=== PATIENT | male | born 1930 | race Caucasian/White ===

== ENCOUNTER 2018-05-14 11:21 | Inpatient (IN) | payer MEDICAID, OTHER ==
[~2018-05-14] VITALS: Ht 152.4 cm; Wt 49.9 kg
--- NOTE | 2018-05-14 12:06 | NUR ---
PROVIDED ICE CHIPS AND TOLERATING WELL
[2018-05-14] MEDS ORDERED: DULO60CA55 PO (12:07)
[2018-05-14] MEDS ORDERED: TAMS-11 PO (12:07)
[2018-05-14 12:11] LABS: BASOPHILS # (AUTO) 0.02 x10^3/uL (0-0.1); BASOPHILS % (AUTO) 0 % (0-1); EOSINOPHILS # (AUTO) 0.05 x10^3/uL (0-0.4); EOSINOPHILS % (AUTO) 0 % (1-7); LYMPHOCYTES % (AUTO) 6 % (22-44); MD NO; MEAN CORPUSCULAR HEMOGLOBIN 29.2 pg (27.5-34.5); MEAN CORPUSCULAR HGB CONC 32.4 g/dL (33.2-36.2); MEAN CORPUSCULAR VOLUME 90.1 fL (81-97); MEAN PLATELET VOLUME 6.8 fL (7.4-10.4); MONOCYTES # (AUTO) 0.94 x10^3/uL (0.2-0.8); MONOCYTES % (AUTO) 7 % (2-9); NEUTROPHILS % (AUTO) 86 % (42-75); PLATELET COUNT 462 x10^3/uL (130-400); RED BLOOD COUNT 2.63 x10^6/uL (4.38-5.82); RED CELL DISTRIBUTION WIDTH 18.9 % (9.4-14.8)
[2018-05-14] MEDS ORDERED: [UNRECOGNIZED DRUG - CODE] TP (12:19)
[2018-05-14] MEDS ORDERED: POLY17PO5 PO (12:19)
[2018-05-14] MEDS ORDERED: ACET325T26 PO (12:19)
[2018-05-14] MEDS ORDERED: TIOTROPIUM (12:19)
[2018-05-14] MEDS ORDERED: SENN8.6T64 PO (12:19)
[2018-05-14] MEDS ORDERED: FERR325T18 PO (12:19)
[2018-05-14] MEDS ORDERED: TIOT18CA INH (12:19)
[2018-05-14] MEDS ORDERED: CHOL100011 PO (12:19)
[2018-05-14] MEDS ORDERED: ASCO500T7 PO (12:19)
[2018-05-14] MEDS ORDERED: FINA5TAB4 PO (12:19)
[2018-05-14] MEDS ORDERED: LISI5TAB7 PO (12:19)
[2018-05-14] MEDS ORDERED: MELA1TAB22 PO (12:19)
[2018-05-14] MEDS ORDERED: LACT-23 PO (12:19)
[2018-05-14] MEDS ORDERED: OMEP-110 PO (12:19)
[2018-05-14 12:24] LABS: ALANINE AMINOTRANSFERASE 10 U/L (12-78); ALBUMIN 2.1 g/dL (3.4-5.0); ANION GAP 3 mmol/L (5-15); CALCIUM 7.8 mg/dL (8.5-10.1); CHLORIDE 105 mmol/L (98-107); CREATININE 0.51 mg/dL (0.7-1.3)
[2018-05-14 12:27] LABS: ALKALINE PHOSPHATASE 74 U/L (45-117); BILIRUBIN,TOTAL 0.2 mg/dL (0.2-1.0); TOTAL PROTEIN 5.2 g/dL (6.4-8.2)
--- NOTE | 2018-05-14 12:51 | NUR ---
PILLOW PLACED UNDER RIGHT HIP TO TAKE PRESSURE OFF OF COCCYX
[2018-05-14 13:21] LABS: CULTURE INDICATED? YES; MICROSCOPIC INDICATED
[2018-05-14] MEDS ORDERED: D5%-0.45% NACL 1,000 ML IV SCH (13:21)
[2018-05-14 13:24] LABS: INTERNATIONAL NORMALIZED RATIO 0.95 (0.93-1.1)
--- NOTE | 2018-05-14 13:25 | NUR ---
HEMMOCULT OBTAINED BY . SMALL AMOUNT OF STOOL IN DEPEND. PT CLEANED BY STAFF WITH DRY DEPEND PLACED.
[2018-05-14] MEDS ORDERED: ONDANSETRON 2MG/ML, 2ML IVPush PRN (13:30)
[2018-05-14] MEDS ORDERED: ONDANSETRON ODT 4 MG PO PRN (13:30)
[2018-05-14] MEDS ORDERED: LABETALOL 5 MG/ML SYRINGE IVPush PRN (13:30)
[2018-05-14] MEDS ORDERED: PLEASE ENTER ALLERGIES MC SCH (13:30)
[2018-05-14] MEDS ORDERED: POLYETHYLENE GLYCOL 17 GM PACKET PO PRN (13:30)
[2018-05-14] MEDS ORDERED: PLEASE ENTER HEIGHT AND WEIGHT MC SCH (13:30)
[2018-05-14] MEDS ORDERED: DEXTROSE 4 GM TAB.CHEW PO PRN (14:00)
[2018-05-14] MEDS ORDERED: DEXTROSE 50%, 50ML SYRINGE IVPush PRN (14:00)
[2018-05-14] MEDS ORDERED: GLUCAGON 1 MG IM PRN (14:00)
--- NOTE | 2018-05-14 14:00 | NUR ---
HOSPITALIST AT BEDSIDE.
[2018-05-14 14:37] LABS: CHOL/HDL RATIO 2.6; LDL/HDL RATIO 0.9 (0.5-3.0)
[2018-05-14] MEDS: PANTOPRAZOLE 80 MG in SODIUM CHLORIDE 0.9% 100 ML IV SCH ×2 (14:53→15:06)
[2018-05-14] MEDS ORDERED: PANTOPRAZOLE 80 MG in SODIUM CHLORIDE 0.9% 50 ML IVPB ONE (15:30)
--- NOTE | 2018-05-14 15:45 | NUR ---
INFORMED DR HOPKINS TO DO SCOPE 3-14 AT 12:30
[2018-05-14] MEDS: INSULIN LISPRO 100 UNITS/ML, PEN SQ-INSULIN SCH ×2 (16:00→21:00)
--- NOTE | 2018-05-14 16:07 | NUR ---
SHANICE RN: REPORT GIVEN TO PAWEL ROCHA, PT READY FOR TRANSFER TO FLOOR
[2018-05-14 17:21] VITALS: BP 96/62
[2018-05-14] MEDS: AMPICILLIN/SULBACTAM 3 GM in SODIUM CHLORIDE 0.9% 100 ML IV SCH ×2 (17:41→23:54)
[2018-05-14] MEDS: DOXYCYCLINE 100 MG in DEXTROSE 5% 250 ML IV SCH (18:39)
[2018-05-14 18:55] VITALS: BP 104/65
[2018-05-14] MEDS: LACTOSE FREE FOOD PO SCH (21:00)
[2018-05-14] MEDS: SODIUM CHLORIDE FLUSH 10ML SYR IVF SCH (21:00)
[2018-05-14] MEDS: TEMPLATE NON-FORMULARY MED. (Melatonin/Pyridoxine Hcl (B6)** (Melatonin 3 Mg Tablet**) 1 T PO SCH (21:00)
[2018-05-14] MEDS: ACETAMINOPHEN 325 MG TABLET PO SCH (21:11)
[2018-05-15] VITALS (9 sets, daily range): BP systolic 96–122; BP diastolic 57–68
[2018-05-15] MEDS: AMPICILLIN/SULBACTAM 3 GM in SODIUM CHLORIDE 0.9% 100 ML IV SCH ×4 (05:35→23:41)
[2018-05-15 06:26] LABS: BASOPHILS # (AUTO) 0.02 x10^3/uL (0-0.1); BASOPHILS % (AUTO) 0 % (0-1); EOSINOPHILS # (AUTO) 0.23 x10^3/uL (0-0.4); EOSINOPHILS % (AUTO) 2 % (1-7); LYMPHOCYTES # (AUTO) 0.88 x10^3/uL (1-3.4); LYMPHOCYTES % (AUTO) 9 % (22-44); MD NO; MEAN CORPUSCULAR HEMOGLOBIN 28.9 pg (27.5-34.5); MEAN CORPUSCULAR HGB CONC 32.3 g/dL (33.2-36.2); MEAN CORPUSCULAR VOLUME 89.4 fL (81-97); MONOCYTES # (AUTO) 0.87 x10^3/uL (0.2-0.8); MONOCYTES % (AUTO) 9 % (2-9); NEUTROPHILS # (AUTO) 7.83 x10^3/uL (1.8-6.8); NEUTROPHILS % (AUTO) 80 % (42-75); PLATELET COUNT 400 x10^3/uL (130-400); RED BLOOD COUNT 2.72 x10^6/uL (4.38-5.82); RED CELL DISTRIBUTION WIDTH 18.2 % (9.4-14.8)
[2018-05-15 06:29] LABS: ALBUMIN 1.9 g/dL (3.4-5.0); ANION GAP 7 mmol/L (5-15); CALCIUM 7.3 mg/dL (8.5-10.1); CHLORIDE 105 mmol/L (98-107)
[2018-05-15] MEDS: DOXYCYCLINE 100 MG in DEXTROSE 5% 250 ML IV SCH ×2 (06:30→18:10)
[2018-05-15 06:41] LABS: ALANINE AMINOTRANSFERASE 10 U/L (12-78); ALKALINE PHOSPHATASE 71 U/L (45-117); CREATININE 0.49 mg/dL (0.7-1.3); TOTAL PROTEIN 4.6 g/dL (6.4-8.2)
[2018-05-15] MEDS: INSULIN LISPRO 100 UNITS/ML, PEN SQ-INSULIN SCH ×4 (07:00→21:00)
[2018-05-15] MEDS: TIOTROPIUM BROMIDE INH SCH (09:00)
[2018-05-15] MEDS: SENNOSIDES 8.6 MG TABLET PO SCH (09:00)
[2018-05-15] MEDS: POLYETHYLENE GLYCOL 17 GM PACKET PO SCH (09:00)
[2018-05-15] MEDS ORDERED: PANTOPRAZOLE 40 MG IV IVPush SCH (09:00)
[2018-05-15] MEDS: LACTOSE FREE FOOD PO SCH ×2 (09:00→21:00)
[2018-05-15] MEDS ORDERED: FERROUS SULFATE 325 MG TABLET PO SCH (09:00)
[2018-05-15] MEDS: SODIUM CHLORIDE FLUSH 10ML SYR IVF SCH ×2 (09:26→21:00)
[2018-05-15] MEDS: ACETAMINOPHEN 325 MG TABLET PO SCH ×2 (09:27→21:11)
[2018-05-15] MEDS: TAMSULOSIN 0.4 MG CAP.ER.24H PO SCH (09:27)
[2018-05-15] MEDS: FINASTERIDE 5 MG TABLET PO SCH (09:27)
[2018-05-15] MEDS: ASCORBIC ACID 500 MG TABLET PO SCH (09:27)
[2018-05-15] MEDS: CHOLECALCIFEROL 1,000 UNIT TABLET PO SCH (09:27)
[2018-05-15] MEDS: DULOXETINE 30 MG CAPSULE.DR PO SCH (09:28)
[2018-05-15] MEDS: SENNA/DOCUSATE TABLET PO SCH (09:28)
[2018-05-15] MEDS: PANTOPRAZOLE 80 MG in SODIUM CHLORIDE 0.9% 100 ML IV SCH ×2 (11:11→22:12)
[2018-05-15] MEDS: TEMPLATE NON-FORMULARY MED. (Melatonin/Pyridoxine Hcl (B6)** (Melatonin 3 Mg Tablet**) 1 T PO SCH (21:00)
[2018-05-16 01:29] VITALS: BP 103/58
[2018-05-16 02:28] VITALS: BP 103/59
[2018-05-16] MEDS: AMPICILLIN/SULBACTAM 3 GM in SODIUM CHLORIDE 0.9% 100 ML IV SCH ×2 (05:33→14:38)
[2018-05-16] MEDS: DOXYCYCLINE 100 MG in DEXTROSE 5% 250 ML IV SCH ×2 (06:14→23:13)
[2018-05-16 06:33] LABS: BASOPHILS # (AUTO) 0.03 x10^3/uL (0-0.1); BASOPHILS % (AUTO) 0 % (0-1); EOSINOPHILS # (AUTO) 0.25 x10^3/uL (0-0.4); EOSINOPHILS % (AUTO) 3 % (1-7); LYMPHOCYTES # (AUTO) 1.02 x10^3/uL (1-3.4); LYMPHOCYTES % (AUTO) 11 % (22-44); MD NO; MEAN CORPUSCULAR HEMOGLOBIN 29.4 pg (27.5-34.5); MEAN CORPUSCULAR HGB CONC 32.8 g/dL (33.2-36.2); MEAN CORPUSCULAR VOLUME 89.8 fL (81-97); MEAN PLATELET VOLUME 6.9 fL (7.4-10.4); MONOCYTES # (AUTO) 0.94 x10^3/uL (0.2-0.8); MONOCYTES % (AUTO) 10 % (2-9); NEUTROPHILS # (AUTO) 6.95 x10^3/uL (1.8-6.8); NEUTROPHILS % (AUTO) 76 % (42-75); PLATELET COUNT 387 x10^3/uL (130-400); RED BLOOD COUNT 2.63 x10^6/uL (4.38-5.82); RED CELL DISTRIBUTION WIDTH 18.1 % (9.4-14.8)
[2018-05-16 06:46] LABS: ALBUMIN 1.9 g/dL (3.4-5.0); ANION GAP 6 mmol/L (5-15); CALCIUM 7.2 mg/dL (8.5-10.1); CHLORIDE 105 mmol/L (98-107)
[2018-05-16 06:48] LABS: CREATININE 0.53 mg/dL (0.7-1.3)
[2018-05-16] MEDS: INSULIN LISPRO 100 UNITS/ML, PEN SQ-INSULIN SCH ×2 (07:00→11:00)
[2018-05-16] MEDS: TIOTROPIUM BROMIDE INH SCH (07:53)
[2018-05-16] MEDS: IRON SUCROSE COMPLEX 100MG/5ML IV SCH (07:53)
[2018-05-16] MEDS: SODIUM CHLORIDE FLUSH 10ML SYR IVF SCH ×2 (07:54→21:00)
[2018-05-16] MEDS: LACTOSE FREE FOOD PO SCH ×2 (07:54→19:53)
[2018-05-16] MEDS: DULOXETINE 30 MG CAPSULE.DR PO SCH (07:54)
[2018-05-16] MEDS: SENNOSIDES 8.6 MG TABLET PO SCH (07:55)
[2018-05-16] MEDS: ACETAMINOPHEN 325 MG TABLET PO SCH ×2 (07:55→19:53)
[2018-05-16] MEDS: TAMSULOSIN 0.4 MG CAP.ER.24H PO SCH (07:55)
[2018-05-16] MEDS: SENNA/DOCUSATE TABLET PO SCH (07:55)
[2018-05-16] MEDS: FINASTERIDE 5 MG TABLET PO SCH (07:55)
[2018-05-16] MEDS: POLYETHYLENE GLYCOL 17 GM PACKET PO SCH (07:55)
[2018-05-16] MEDS: CHOLECALCIFEROL 1,000 UNIT TABLET PO SCH (07:56)
[2018-05-16] MEDS: ASCORBIC ACID 500 MG TABLET PO SCH (07:56)
[2018-05-16 08:33] VITALS: BP 109/64
[2018-05-16] MEDS: PANTOPRAZOLE 80 MG in SODIUM CHLORIDE 0.9% 100 ML IV SCH (08:37)
[2018-05-16] MEDS ORDERED: EPINEPHRINE SYRINGE 0.1 MG/ML, 10ML ONE (13:29)
[2018-05-16] MEDS ORDERED: FENTANYL PF 100 MCG/2ML IV PRN (13:30)
[2018-05-16] MEDS ORDERED: ONDANSETRON 2MG/ML, 2ML IVPush PRN (13:30)
[2018-05-16] MEDS ORDERED: LABETALOL 5MG/ML, 20ML IV PRN (13:30)
[2018-05-16] MEDS ORDERED: OXYcodone 5 MG/5 ML ORAL.SOL UDC PO PRN (13:30)
[2018-05-16] MEDS ORDERED: MEPERIDINE/PF 25MG/0.5ML IVPush PRN (13:30)
[2018-05-16] MEDS ORDERED: MIDAZOLAM 1 MG/ML, 2ML IV PRN (13:30)
[2018-05-16] MEDS ORDERED: HYDROmorphone 1 MG/ML, 1ML IV PRN (13:30)
[2018-05-16] MEDS ORDERED: FENTANYL PF 100 MCG/2ML ONE (13:33)
[2018-05-16 14:17] VITALS: BP 112/67
[2018-05-16] MEDS ORDERED: PHENYLEPHRINE 10 MG/ML ONE (15:27)
[2018-05-16] MEDS ORDERED: PROPOFOL 10 MG/ML, 20ML ONE (15:27)
[2018-05-16] MEDS ORDERED: SUCRALFATE 1 GM/10 ML UDC PO SCH (17:00)
[2018-05-16] MEDS: TEMPLATE NON-FORMULARY MED. (Melatonin/Pyridoxine Hcl (B6)** (Melatonin 3 Mg Tablet**) 1 T PO SCH (19:53)
[2018-05-16 20:01] VITALS: BP 105/56
[2018-05-17] MEDS: AMPICILLIN/SULBACTAM 3 GM in SODIUM CHLORIDE 0.9% 100 ML IV SCH ×3 (00:30→06:33)
[2018-05-17 01:20] VITALS: BP 98/59
[2018-05-17 05:23] LABS: BASOPHILS # (AUTO) 0.04 x10^3/uL (0-0.1); BASOPHILS % (AUTO) 1 % (0-1); EOSINOPHILS # (AUTO) 0.34 x10^3/uL (0-0.4); EOSINOPHILS % (AUTO) 4 % (1-7); LYMPHOCYTES # (AUTO) 0.93 x10^3/uL (1-3.4); LYMPHOCYTES % (AUTO) 11 % (22-44); MD NO; MEAN CORPUSCULAR VOLUME 90.8 fL (81-97); MEAN PLATELET VOLUME 7.2 fL (7.4-10.4); MONOCYTES # (AUTO) 0.89 x10^3/uL (0.2-0.8); MONOCYTES % (AUTO) 10 % (2-9); NEUTROPHILS # (AUTO) 6.41 x10^3/uL (1.8-6.8); NEUTROPHILS % (AUTO) 74 % (42-75); PLATELET COUNT 411 x10^3/uL (130-400); RED BLOOD COUNT 2.75 x10^6/uL (4.38-5.82)
[2018-05-17 05:31] LABS: ALBUMIN 1.7 g/dL (3.4-5.0); ANION GAP 4 mmol/L (5-15); CALCIUM 7.4 mg/dL (8.5-10.1); CHLORIDE 109 mmol/L (98-107); CREATININE 0.36 mg/dL (0.7-1.3)
[2018-05-17] MEDS ORDERED: PANTOPROZOLE 40MG TABLET PO SCH (07:00)
[2018-05-17] MEDS ORDERED: POTASSIUM CHLORIDE 20 MEQ TAB.ER.PRT PO ONE (07:00)
[2018-05-17 07:45] VITALS: BP 118/64
[2018-05-17] MEDS: SUCRALFATE 1 GM/10 ML UDC PO SCH ×4 (07:51→21:24)
[2018-05-17] MEDS: SODIUM CHLORIDE FLUSH 10ML SYR IVF SCH ×2 (08:52→21:24)
[2018-05-17] MEDS: IRON SUCROSE COMPLEX 100MG/5ML IV SCH (08:52)
[2018-05-17] MEDS: TIOTROPIUM BROMIDE INH SCH (08:52)
[2018-05-17] MEDS: OMEPRAZOLE 20 MG CAPSULE.DR PO SCH (08:53)
[2018-05-17] MEDS: FINASTERIDE 5 MG TABLET PO SCH (08:53)
[2018-05-17] MEDS: DULOXETINE 30 MG CAPSULE.DR PO SCH (08:53)
[2018-05-17] MEDS: TAMSULOSIN 0.4 MG CAP.ER.24H PO SCH (08:53)
[2018-05-17] MEDS: SENNA/DOCUSATE TABLET PO SCH (08:54)
[2018-05-17] MEDS: SENNOSIDES 8.6 MG TABLET PO SCH (08:54)
[2018-05-17] MEDS: CHOLECALCIFEROL 1,000 UNIT TABLET PO SCH (08:54)
[2018-05-17] MEDS: POLYETHYLENE GLYCOL 17 GM PACKET PO SCH (08:55)
[2018-05-17] MEDS: LACTOSE FREE FOOD PO SCH ×2 (08:57→21:00)
[2018-05-17] MEDS: ACETAMINOPHEN 325 MG TABLET PO SCH ×2 (08:57→21:24)
[2018-05-17] MEDS ORDERED: POTASSIUM CHLORIDE 10% 40 MEQ/30 ML UDC PO ONE (11:00)
[2018-05-17] MEDS: AMOXICILLIN/CLAV 875-125MG TABLET PO SCH ×2 (12:10→21:24)
[2018-05-17 14:00] VITALS: BP 100/63
[2018-05-17] MEDS ORDERED: SUCR1TAB33 PO (16:00)
[2018-05-17] MEDS ORDERED: PANT40GR PO (16:01)
[2018-05-17 19:37] VITALS: BP 93/53
[2018-05-17] MEDS: TEMPLATE NON-FORMULARY MED. (Melatonin/Pyridoxine Hcl (B6)** (Melatonin 3 Mg Tablet**) 1 T PO SCH (21:00)
[2018-05-18 01:30] VITALS: BP 99/63
[2018-05-18 05:18] LABS: ALBUMIN 1.8 g/dL (3.4-5.0); ANION GAP 4 mmol/L (5-15); CALCIUM 7.5 mg/dL (8.5-10.1); CHLORIDE 109 mmol/L (98-107); CREATININE 0.34 mg/dL (0.7-1.3)
[2018-05-18 05:25] LABS: BASOPHILS # (AUTO) 0.03 x10^3/uL (0-0.1); BASOPHILS % (AUTO) 0 % (0-1); EOSINOPHILS # (AUTO) 0.65 x10^3/uL (0-0.4); EOSINOPHILS % (AUTO) 7 % (1-7); LYMPHOCYTES # (AUTO) 1.15 x10^3/uL (1-3.4); LYMPHOCYTES % (AUTO) 12 % (22-44); MD NO; MEAN CORPUSCULAR HEMOGLOBIN 29.7 pg (27.5-34.5); MEAN CORPUSCULAR HGB CONC 32.6 g/dL (33.2-36.2); MEAN CORPUSCULAR VOLUME 91.1 fL (81-97); MEAN PLATELET VOLUME 7.1 fL (7.4-10.4); MONOCYTES # (AUTO) 0.88 x10^3/uL (0.2-0.8); MONOCYTES % (AUTO) 9 % (2-9); NEUTROPHILS # (AUTO) 6.81 x10^3/uL (1.8-6.8); NEUTROPHILS % (AUTO) 72 % (42-75); PLATELET COUNT 417 x10^3/uL (130-400); RED BLOOD COUNT 2.95 x10^6/uL (4.38-5.82); RED CELL DISTRIBUTION WIDTH 19.1 % (9.4-14.8)
[2018-05-18 07:38] VITALS: BP 123/73
[2018-05-18] MEDS: SUCRALFATE 1 GM/10 ML UDC PO SCH ×2 (08:19→11:50)
[2018-05-18] MEDS ORDERED: IRON SUCROSE COMPLEX 100MG/5ML IV ONE (09:00)
[2018-05-18] MEDS: LACTOSE FREE FOOD PO SCH (09:22)
[2018-05-18] MEDS: IRON SUCROSE COMPLEX 100MG/5ML IV SCH (09:22)
[2018-05-18] MEDS: TIOTROPIUM BROMIDE INH SCH (09:22)
[2018-05-18] MEDS: SODIUM CHLORIDE FLUSH 10ML SYR IVF SCH (09:22)
[2018-05-18] MEDS: AMOXICILLIN/CLAV 875-125MG TABLET PO SCH (09:22)
[2018-05-18] MEDS: DULOXETINE 30 MG CAPSULE.DR PO SCH (09:23)
[2018-05-18] MEDS: FINASTERIDE 5 MG TABLET PO SCH (09:23)
[2018-05-18] MEDS: TAMSULOSIN 0.4 MG CAP.ER.24H PO SCH (09:23)
[2018-05-18] MEDS: SENNOSIDES 8.6 MG TABLET PO SCH (09:24)
[2018-05-18] MEDS: ACETAMINOPHEN 325 MG TABLET PO SCH (09:24)
[2018-05-18] MEDS: OMEPRAZOLE 20 MG CAPSULE.DR PO SCH (09:24)
[2018-05-18] MEDS: SENNA/DOCUSATE TABLET PO SCH (09:24)
[2018-05-18] MEDS: POLYETHYLENE GLYCOL 17 GM PACKET PO SCH (09:24)
[2018-05-18] MEDS: CHOLECALCIFEROL 1,000 UNIT TABLET PO SCH (09:25)
[2018-05-18 13:46] VITALS: BP 107/65
[2018-05-18] MEDS ORDERED: DOXY100T PO (16:59)
[2018-05-18] MEDS ORDERED: AMOX1TAB64 PO (16:59)
== END 2018-05-18 17:10 | disposition home or self-care (01) | DRG 377 ==
LOC: ED 13:08 → EDIP 13:09 → ED 13:21 → 3NE 15:47
PROVIDERS: ADMIT Internal Medicine; ATTEND Internal Medicine
PROC: 30233N1 Transfusion of Nonautologous Red Blood Cells into Peripheral Vein, Percutaneous Approach (ICD-10-PCS; 2018-05-15)
PROC: 0W3P8ZZ Control Bleeding in Gastrointestinal Tract, Via Natural or Artificial Opening Endoscopic (ICD-10-PCS; principal; 2018-05-16 12:30)
DX: K55.21 Angiodysplasia of colon with hemorrhage (principal); E43 Unspecified severe protein-calorie malnutrition; J18.1 Lobar pneumonia, unspecified organism; D62 Acute posthemorrhagic anemia; J44.0 Chronic obstructive pulmonary disease with (acute) lower respiratory infection; K25.4 Chronic or unspecified gastric ulcer with hemorrhage; Z66 Do not resuscitate; D50.0 Iron deficiency anemia secondary to blood loss (chronic); Z68.21 Body mass index [BMI] 21.0-21.9, adult; F10.10 Alcohol abuse, uncomplicated; F17.200 Nicotine dependence, unspecified, uncomplicated; F32.9 Major depressive disorder, single episode, unspecified; H26.9 Unspecified cataract; H54.8 Legal blindness, as defined in USA; I36.1 Nonrheumatic tricuspid (valve) insufficiency; I10 Essential (primary) hypertension; I25.10 Atherosclerotic heart disease of native coronary artery without angina pectoris; I73.9 Peripheral vascular disease, unspecified; K44.9 Diaphragmatic hernia without obstruction or gangrene; K59.09 Other constipation; M19.90 Unspecified osteoarthritis, unspecified site; N40.0 Benign prostatic hyperplasia without lower urinary tract symptoms; Z87.11 Personal history of peptic ulcer disease; Z89.611 Acquired absence of right leg above knee; Z89.612 Acquired absence of left leg above knee; Z99.3 Dependence on wheelchair; Z91.14 Patient's other noncompliance with medication regimen
CPT/HCPCS: 36415; 71045; 80048; 80053; 80061; 81001; 82040; 82728; 82962; 83036; 83540; 83550; 83735; 84100; 84439; 84443; 85018; 85025; 85610; 85730; 86850; 86900; 86923; 87040; 87086; 93005; 93321; 93325; 99285; G0378; J0295; J1756; J2704; J3010; J7060; C8924; C9113; J2370; P9016